=== PATIENT | male | born 2000 | race Caucasian/White ===

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

== ENCOUNTER 2021-01-13 13:47 | Emergency (ER) | payer OTHER ==
[~2021-01-13] VITALS: Ht 172.7 cm; Wt 104.3 kg
[2021-01-13] MEDS ORDERED: PROVENTIL HFA6.7 GM INH (17:28)
[2021-01-13] MEDS ORDERED: PREDNISONE20 M1 PO (17:28)
== END 2021-01-13 17:30 | disposition home or self-care (01) ==
LOC: ED 13:47
DX: U07.1 COVID-19 (principal)

== ENCOUNTER 2021-02-19 10:46 | Emergency (ER) | payer OTHER ==
[~2021-02-19 10:46] MED LIST changes: +PREDNISONE20 M1 PO; +PROVENTIL HFA6.7 GM INH
[2021-02-19] MEDS ORDERED: CEPHALEXIN500 M1 PO (12:38)
== END 2021-02-19 12:43 | disposition home or self-care (01) ==
LOC: ED 10:46
DX: S61.432A Puncture wound without foreign body of left hand, initial encounter (principal); Z79.899 Other long term (current) drug therapy; W18.31XA Fall on same level due to stepping on an object, initial encounter; Y93.89 Activity, other specified; Y92.098 Other place in other non-institutional residence as the place of occurrence of the external cause; Y99.8 Other external cause status